=== PATIENT | male | born 1955 | race Caucasian/White ===

== ENCOUNTER → 2017-03-20 | Outpatient (CLI) | payer OTHER | LOC: CIMAGING 14:53 | PROVIDERS: ATTEND Family Medicine | DX: M25.511 Pain in right shoulder (principal); M25.512 Pain in left shoulder | CPT/HCPCS: 73030-PO ==

== ENCOUNTER 2017-03-24 11:05 | Inpatient (IN) | payer OTHER ==
[2017-03-24] MEDS ORDERED: LET GEL TOPICAL 1 EA SYR TP ONE ×2 (11:36→11:40)
--- NOTE | 2017-03-24 11:47 | CPEKG ---
Heart Rate: 102 RR Interval: 588 P-R Interval: 152 QRSD Interval: 92 QT Interval: 396 QTC Interval: 516 P [place]: 45 QRS [place]: 23 T Wave [place]: 21 EKG Severity - ABNORMAL ECG - EKG Impression: SINUS TACHYCARDIA EKG Impression: BORDERLINE INFERIOR Q WAVES EKG Impression: ABNRM R PROG, CONSIDER ASMI OR LEAD PLACEMENT EKG Impression: PROLONGED QT INTERVAL Electronically Signed By: Archana Rawls 24-Mar-2017 14:53:07
[2017-03-24] MEDS ORDERED: NS 500 ML IV ONE (11:58)
--- NOTE | 2017-03-24 12:02 | EDPHY ---
H & P Time Seen by Provider: 03/24/17 11:39 HPI/ROS: CHIEF COMPLAINT: Syncope, head injury HISTORY OF PRESENT ILLNESS: The patient is a 61-year-old male with a history of coronary artery disease who presents to the emergency department after having a syncopal episode. Patient got up this morning to go to the bathroom. He states he stood up too quickly and started walking to the bathroom. He became lightheaded and fell to the floor. He has a laceration on his head and face. He has a mild headache. No neck pain. Patient states his period of unconsciousness was brief. He had no preceding symptoms such as chest pain or shortness of breath. No nausea, vomiting or diaphoresis before after the incident. Patient states he had a similar incident 6 months ago. REVIEW OF SYSTEMS: My complete review of systems is negative except as mentioned in the HPI. Past Medical/Surgical History: Includes coronary artery disease, Meckel's diverticulum Past surgical history: Includes stent placement, abdominal surgery for Meckel' s diverticulum Social history: Patient does not smoke Smoking Status: Former smoker Physical Exam: 36.7, 93/73, 106, 16, 98% on room air GENERAL: Well-appearing, in no acute distress, alert. HEENT: Eyes normal to inspection, normal pharynx, no signs of dehydration. Patient has a irregular 3 cm laceration on the right top aspect of his head (#1) . The skin is slightly macerated. No deformity of the cranium. The patient has a surrounding hematoma. Patient also has a 3 cm vertically linear laceration on his left cheek (#2). This does not involve his eye. No bony tenderness palpation NECK: No thyromegaly, no lymphadenopathy, supple. Nexus negative. No C-spine tenderness. RESPIRATORY: Clear to auscultation bilaterally, no rales, rhonchi or wheezing. CVS: Regular rate and rhythm, no rubs, murmurs, or gallops. ABDOMEN: Soft, nontender, nondistended, no organomegaly. BACK: Normal to inspection, no CVA tenderness. No spinal tenderness Pelvis: Stable no tenderness palpation. Full range of motion. SKIN: Normal color, no rash, warm, dry. No pallor. EXTREMITIES: No pedal edema, no calf tenderness, no Homans sign or cords, no joint swelling. NEURO/PSYCH: Higher functions: Alert and Oriented x3. Normal speech and cognition. Normal mood and affect. Cranial nerves: Normal as tested. Cerebellar: Normal as tested. Good finger to nose, good [id number], normal gait. Peripheral exam: Normal motor exam. Normal sensation. Normal reflexes. Constitutional: Initial Vital Signs Temperature (C) 36.7 C 03/24/17 11:18 Heart Rate 106 H 03/24/17 11:18 Respiratory Rate 16 03/24/17 11:18 Blood Pressure 93/73 L 03/24/17 11:18 O2 Sat (%) 98 03/24/17 11:18 O2 Delivery Mode Room Air Allergies/Adverse Reactions: No Known Allergies Allergy (Verified 03/24/17 11:29) Home Medications: Medication Instructions Recorded Metoprolol Succinate 09/30/16 Aspirin 03/24/17 Lisinopril 03/24/17 Medical Decision Making Procedures: Procedure: Laceration repair. #1. Verbal consent was obtained from the patient. The 3 cm laceration on the top of his head was anesthetized in the usual fashion. The wound was irrigated, draped and explored to its base with a gloved finger. There were no deep structures involved. No galea involvement. The front half of the wound was laceration. The last half of the wound was a divot out of the skin. This made the back half of the laceration not amenable to approximation of repair. The wound was repaired with shan. The wound repair was simple. The procedure was performed by myself. Procedure: Laceration repair. #2. Verbal consent was obtained from the patient. The 3 cm laceration on the left face was anesthetized in the usual fashion. The wound was irrigated, draped and explored to its base with a gloved finger. There were no deep structures involved. The wound was repaired with 6 0 nylon. The wound repair was simple. The procedure was performed by myself. ED Course/Re-evaluation: In the emergency department I discussed possible etiologies with the patient. I answered all his questions. EKG, head CT, laboratory studies were ordered. Patient was placed on the lamp assembler. He is given normal saline 500 mL IV. EKG shows sinus tachycardia 102, normal axis, prolonged QT (516). Small Q- waves II, III, aVF. There are no ST or T-wave abnormalities. I reviewed the patient's laboratory studies. The patient's chemistry panel is abnormal. He has a low chloride of 91. His CO2 is low at 14. His anion gap is elevated at 29. Creatinine elevated at 1.9. Patient had his wounds repaired. Please refer to the note. On recheck he had no focal neurologic deficits. No new complaints. The patient's heart was 107. Head CT: Please refer the dictated report I discussed all results with the patient. I answered his questions. Patient was given normal saline 500 mL IV for hydration I paged the hospitalist service. The patient will be admitted for further observation and care. This is due the patient's syncopal episode, abnormal EKG and mild tachycardia. Differential Diagnosis: My differential includes but not limited to dysrhythmia, ACS, acute MS, vasovagal episode, subarachnoid hemorrhage, subdural hematoma, epidural hematoma , laceration, skull fracture - Data Points Laboratory Results: Laboratory Results 03/24/17 12:02 03/24/17 12:02 03/24/17 03/24/17 12: 12:02 WBC 11.60 10^3/uL H 10^3/uL (3.80-9.50) RBC 4.86 10^6/uL 10^6/uL (4.40-6.38) Hgb 16.9 g/dL g/dL (13.7-17.5) Hct 46.2 % % (40.0-51.0) MCV 95.1 fL fL (81.5-99.8) MCH 34.8 pg H pg (27.9-34.1) MCHC 36.6 g/dL g/dL (32.4-36.7) RDW 11.9 % % (11.5-15.2) Plt Count 241 10^3/uL 10^3/uL (150-400) MPV 8.1 fL L fL (8.7-11.7) Neut % (Auto) 77.8 % H % (39.3-74.2) Lymph % (Auto) 12.9 % L % (15.0-45.0) Wolfe % (Auto) 8.0 % % (4.5-13.0) Eos % (Auto) 0.2 % L % (0.6-7.6) Baso % (Auto) 0.8 % % (0.3-1.7) Nucleat RBC Rel Count 0.2 % % (0.0-0.2) Absolute Neuts (auto) 9.02 10^3/uL H 10^3/uL (1.70-6.50) Absolute Lymphs (auto) 1.50 10^3/uL 10^3/uL (1.00-3.00) Absolute Monos (auto) 0.93 10^3/uL H 10^3/uL (0.30-0.80) Absolute Eos (auto) 0.02 10^3/uL L 10^3/uL (0.03-0.40) Absolute Basos (auto) 0.09 10^3/uL 10^3/uL (0.02-0.10) Absolute Nucleated RBC 0.02 10^3/uL H 10^3/uL (0-0.01) Immature Gran % 0.3 % % (0.0-1.1) Immature Gran # 0.04 10^3/uL 10^3/uL (0.00-0.10) Sodium 134 mEq/L mEq/L (134-144) Potassium 4.5 mEq/L mEq/L (3.5-5.2) Chloride 91 mEq/L L mEq/L (97-110) Carbon Dioxide 14 mEq/l L mEq/l (22-31) Anion Gap 29 mEq/L H mEq/L (8-16) BUN 19 mg/dL mg/dL (7-23) Creatinine 1.9 mg/dL H mg/dL (0.7-1.3) Estimated GFR 36 Glucose 108 mg/dL H mg/dL (70-100) Calcium 9.2 mg/dL mg/dL (8.5-10.4) Troponin I Pending Medications Given: Discontinued Medications Sodium Chloride (Ns) 500 mls @ 0 mls/hr IV ONCE ONE; Wide Open PRN Reason: Protocol Stop: 03/24/17 11:59 Last Admin: 03/24/17 12:15 Dose: 500 mls Tetracaine/Epinephrine/Lidocaine (Let Gel Topical) 1 ea TP EDNOW ONE Stop: 03/24/17 11:41 Last Admin: 03/24/17 11:41 Dose: 1 ea Departure - Departure Disposition: [facility] Acute Clinical Impression: Laceration, Syncope and collapse, Prolonged QT interval Condition: Good Referrals: Rosi Avelar MD [Primary Care Provider] - As per Instructions
[2017-03-24 12:09] LABS: % IMMATURE GRANULYOCYTES 0.3 % (0.0-1.1); ABSOLUTE IMMATURE GRANULOCYTES 0.04 10^3/uL (0.00-0.10); ABSOLUTE NRBC COUNT 0.02 10^3/uL (0-0.01); ADD DIFF? NO; ADD MORPH? NO; ADD SCAN? NO; ATYPICAL LYMPHOCYTE FLAG 0 (0-99); FRAGMENT RBC FLAG 0 (0-99); HEMATOCRIT 46.2 % (40.0-51.0); HEMOGLOBIN 16.9 g/dL (13.7-17.5); LEFT SHIFT FLG 0 (0-99); LIPEMIA HEMOLYSIS FLAG 90 (0-99); MEAN CELL HEMOGLOBIN 34.8 pg (27.9-34.1); MEAN CELL HEMOGLOBIN CONCENTR. 36.6 g/dL (32.4-36.7); MEAN CELL VOLUME 95.1 fL (81.5-99.8); MEAN PLATELET VOLUME 8.1 fL (8.7-11.7); NRBC-AUTO% 0.2 % (0.0-0.2); PLATELET CLUMPS FLAG 0 (0-99); PLATELET COUNT 241 10^3/uL (150-400); RED BLOOD CELL COUNT 4.86 10^6/uL (4.40-6.38); RED CELL DISTRIBUTION WIDTH 11.9 % (11.5-15.2)
[2017-03-24 12:20] LABS: ANION GAP 29 mEq/L (8-16); CALCIUM 9.2 mg/dL (8.5-10.4); CARBON DIOXIDE 14 mEq/l (22-31); CHLORIDE 91 mEq/L (97-110); CREATININE 1.9 mg/dL (0.7-1.3); GLOMERULAR FILTRATION RATE 36; GLUCOSE 108 mg/dL (70-100); POTASSIUM 4.5 mEq/L (3.5-5.2); SODIUM 134 mEq/L (134-144)
[2017-03-24 12:30] LABS: TROPONIN I < 0.012 ng/mL (0.000-0.034)
[2017-03-24 13:34] LABS: INR 1.03 (0.83-1.16); PROTIME(PATIENT) 13.4 SEC (12.0-15.0)
[2017-03-24 13:41] LABS: ALANINE AMINOTRANSFERASE 65 IU/L (21-72); ALBUMIN 4.5 g/dL (3.5-5.0); ALKALINE PHOSPHATASE 89 IU/L (38-126); ASPARTATE AMINOTRANSFERASE 71 IU/L (17-59); BILIRUBIN,TOTAL 1.2 mg/dL (0.1-1.4); BILIRUBIN-CONJUGATED 0.5 mg/dL (0.0-0.5); BILIRUBIN-UNCONJUGATED 0.7 mg/dL (0.0-1.1); MAGNESIUM 2.2 mg/dL (1.6-2.3); SALICYLATE < 1.0 mg/dL (2.0-20.0); TOTAL PROTEIN 7.2 g/dL (6.3-8.2)
[2017-03-24] MEDS ORDERED: NS 2,200 ML IV ONE (15:01)
[2017-03-24] MEDS ORDERED: LORazepam 2 MG/ML INJ IVP PRN (15:13)
[2017-03-24] MEDS ORDERED: chlordiazePOXIDE 25 MG CAP PO PRN (15:13)
[2017-03-24] MEDS ORDERED: ACETAMINOPHEN 325 MG TAB PO PRN (15:17)
[2017-03-24] MEDS ORDERED: PROMETHAZINE HCL 25 MG/ML INJ IVP PRN (15:17)
[2017-03-24] MEDS ORDERED: ONDANSETRON 4 MG/2 ML VIAL IVP PRN (15:17)
--- NOTE | 2017-03-24 16:00 | GHP ---
[f rep st] HISTORY AND PHYSICAL DATE OF ADMISSION: 03/24/2017 CHIEF COMPLAINT: Syncope. HISTORY OF PRESENT ILLNESS: The patient is a 61-year-old male, who woke up this morning to go to the bathroom, jumped out of bed, and subsequently had a salma syncopal event, hitting his head and susta ining 2 scalp lacerations. He has passed out like this similarly in the past. He denies any chest p ain or shortness of breath. He denies any other symptoms, and states when he went to bed last evenin g he was in his usual state of health. He has had recent normal oral intake and denies any fever. O n further questioning, in social history, he does reveal alcohol use, admitting to 2 drinks per day, but did admit to increased alcohol use last night, which he states was only 4 drinks. He denies ever having alcohol withdrawal in the past. He then admitted to probable dehydration, which he states is due to difficulty keeping up with fluid intake. PAST MEDICAL HISTORY: 1. Coronary artery disease, status post stent [id number]. 2. Meckel diverticulum, status post resection. MEDICATIONS: Please see computer record for detailed list. ALLERGIES: No known drug allergies. SOCIAL HISTORY: No smoking. 2 alcoholic beverages per day. Drank 4 last night. He lives alone. H is niece is currently staying with him. He works as a computer hardware designer. REVIEW OF SYSTEMS: Complete review of systems obtained. Review of systems negative regarding consti tutional, HEENT, GI, pulmonary, cardiovascular, , hematology, skin, muscular, endocrine, psych, and for positives as under HPI. FAMILY HISTORY: Reviewed, noncontributory to presenting complaint. PHYSICAL EXAMINATION: GENERAL: Well-developed, well-nourished male, in no acute distress. He does appear mildly to moderately tremulous. VITAL SIGNS: Temp is 36.7, pulse 115, blood pressure 147/82, saturating 92% on room air. HEENT: Normal conjunctivae. Pupils react light. ENT: Normal ears an d nose. Hearing intact. Normal lips and teeth. Oropharynx moist. NECK: Trachea midline. No thyr omegaly. CHEST: Normal effort. LUNGS: Clear to auscultation bilaterally. CARDIOVASCULAR: Regula r rhythm. No murmur. No extremity edema. ABDOMEN: Soft, nontender. No hepatosplenomegaly. SKIN: Warm, dry, intact without rash. MUSCULOSKELETAL: No cyanosis or clubbing. Strength 5/5 upper and lower extremities. NEUROLOGIC: Cranial nerves intact. Normal sensation to light touch. PSYCHIATR IC: Alert and oriented x3. Normal affect. Normal judgment. Normal memory. LABORATORY DATA: White count 11.6, hematocrit 46.8, platelets 241. Sodium 134, potassium 4.5, chlor tika 91, bicarb 14, anion gap is 29, BUN 19. Creatinine 1.9, glucose 108. Lactate is 7.7. INR is 1.0 3. Troponins negative. IMAGING STUDIES: Chest x-ray is negative. EKG viewed by me. My personal interpretation is sinus ta chycardia, mild prolonged QT. Head CT shows right scalp hematoma and exaggerated brain atrophy for a ge. ASSESSMENT AND PLAN: 1. Syncope. I suspect this is due to dehydration, as he does have a very elevated lactate, which wo uld suggest intravascular volume depletion. We will follow orthostatics. We will check an echocardi ogram, TSH, and follow him on telemetry. 2. Anion gap acidosis. Anion gap is 29. This is due to his lactate of 7.7. I do not think he is s eptic, but I will check blood cultures times 2. There is no current source evident. This may all be due to severe dehydration. Will aggressively hydrate with intravenous fluids and follow serial lact ates. 3. Acute renal failure. As discussed above, the patient is likely dehydrated. Give an intravenous fluid bolus, and follow Chem-7. 4. Scalp laceration, status post repair. This was done in the emergency room. 5. Coronary artery disease, status post stent. I do not think he has any concerns for acute ischemi a at this time. 6. Long QT. This may be due to his acidosis, so I will recheck an EKG in the morning once this is i mproved. 7. Alcohol use, possible early alcohol withdrawal. He does present tremulous. His story is a little suspect regarding extreme laboratory abnormalities due to dehydration, and I do suspect he drank mor e heavily last night than he is initially admitting. Will place him on a Clinical [place] Withdraw al Assessment protocol with intravenous thiamine, and follow up for benzodiazepine needs. 8. Code status: Full. 9. Admission status: Will admit to observation and reassess tomorrow regarding ongoing hospitalizat ion need. 10. DVT prophylaxis. He is moderate risk. Will place him on subcu Lovenox. /[id number]/MODL
[2017-03-24] MEDS: THIAMINE HCL 500 MG in NS 100 ML IV SCH (16:01)
[2017-03-24 18:24] LABS: COLOR YELLOW; LEUKOCYTE ESTERASE,URINE NEGATIVE (NEGATIVE); NITRITE,URINE NEGATIVE (NEGATIVE)
[2017-03-24] MEDS: METOPROLOL TARTRATE 25 MG TAB PO SCH (20:35)
[2017-03-25 04:02] LABS: % IMMATURE GRANULYOCYTES 0.4 % (0.0-1.1); ABSOLUTE IMMATURE GRANULOCYTES 0.02 10^3/uL (0.00-0.10); ADD DIFF? NO; ADD MORPH? NO; ADD SCAN? NO; ATYPICAL LYMPHOCYTE FLAG 0 (0-99); FRAGMENT RBC FLAG 0 (0-99); HEMATOCRIT 38.1 % (40.0-51.0); HEMOGLOBIN 14.1 g/dL (13.7-17.5); LEFT SHIFT FLG 0 (0-99); LIPEMIA HEMOLYSIS FLAG 90 (0-99); MEAN CELL HEMOGLOBIN 35.4 pg (27.9-34.1); MEAN CELL VOLUME 95.7 fL (81.5-99.8); MEAN PLATELET VOLUME 8.5 fL (8.7-11.7); PLATELET CLUMPS FLAG 0 (0-99); PLATELET COUNT 107 10^3/uL (150-400); RED BLOOD CELL COUNT 3.98 10^6/uL (4.40-6.38); RED CELL DISTRIBUTION WIDTH 11.7 % (11.5-15.2)
[2017-03-25 04:21] LABS: ANION GAP 9 mEq/L (8-16); CALCIUM 8.7 mg/dL (8.5-10.4); CARBON DIOXIDE 23 mEq/l (22-31); CHLORIDE 104 mEq/L (97-110); GLOMERULAR FILTRATION RATE > 60; GLUCOSE 110 mg/dL (70-100); MAGNESIUM 2.1 mg/dL (1.6-2.3); POTASSIUM 4.1 mEq/L (3.5-5.2); SODIUM 136 mEq/L (134-144)
[2017-03-25 04:33] LABS: TROPONIN I < 0.012 ng/mL (0.000-0.034)
--- NOTE | 2017-03-25 08:39 | CPEKG ---
Heart Rate: 114 RR Interval: 526 P-R Interval: 156 QRSD Interval: 92 QT Interval: 356 QTC Interval: 491 P [place]: 36 QRS [place]: 21 T Wave [place]: -4 EKG Severity - BORDERLINE ECG - EKG Impression: SINUS TACHYCARDIA EKG Impression: BORDERLINE T ABNORMALITIES, INFERIOR LEADS EKG Impression: BORDERLINE PROLONGED QT INTERVAL EKG Impression: BORDERLINE INFERIOR T-WAVES ARE NOW PRESENT COMPARED WITH 03/24/2017 Electronically Signed By: Melony Brown 25-Mar-2017 08:45:41
[2017-03-25] MEDS: ASPIRIN EC 81 MG TAB PO SCH (08:45)
[2017-03-25] MEDS: METOPROLOL TARTRATE 25 MG TAB PO SCH ×2 (08:45→19:35)
[2017-03-25] MEDS: ENOXAPARIN 40 MG/0.4 ML SYR SC SCH (08:56)
[2017-03-25] MEDS: THIAMINE HCL 500 MG in NS 100 ML IV SCH (08:56)
[2017-03-25] MEDS ORDERED: hydrALAZINE 20 MG/ML VIAL IVP PRN (09:56)
[2017-03-25] MEDS: LISINOPRIL 10 MG TAB PO SCH ×2 (11:01→19:34)
[2017-03-25] MEDS: D5W NS 1,000 ML IV SCH ×2 (11:04→21:58)
--- NOTE | 2017-03-25 11:25 | ECHO ---
[email or web address] [address] [address] Main: [phone] Fax: Transthoracic Echocardiogram Name: SCOTT BURNS MR#: [id number] Study Date: 03/25/2017 Study Time: 08:13 AM Date of : 1955 Age: 61 year(s) Height: 172.7 cm (68 in.) Weight: 72.12 kg (159 lb.) BSA: 1.85 m2 Gender: Male Examination: Echo Indication: Cardiac: syncope, hx of stents Image Quality: Contrast: Requested by: Sharon Foster BP: 163 mmHg/105 mmHg Heart Rate: Rhythm: Indication: Cardiac: syncope, hx of stents Procedure Staff Heading And Priming Operator: Priscila Huddleston Physician: Requesting Provider: Measurements: Chambers Valvular Assessment AV/MV Valvular Assessment TV/PV Normal Normal Normal Name Value Range Name Value Range Name Value Range Ao Theresa (MM): 3.7 cm (2.2 cm-3.7 AV meanP mmHg ( - ) cm) MV E Vmax: 0.85 m/s ( - ) IVSd (2D): 0.8 cm (0.6 cm-1.1 MV A Vmax: 1.16 m/s ( - ) cm) MV E/A: 0.73 ( - ) LVDd (2D): 4.4 cm (4.2 cm-5.9 cm) LVDs (2D): 2.2 cm (2.1 cm-4 cm) LVPWd (2D): 0.8 cm (0.6 cm-1 cm) LVEF (2D): 81 (>=54 %) EF Range: 75-80 % Continued Measurements: Chambers Valvular Assessment AV/MV Name Value Name Value LADs: 3.2 cm MV E' Septal: 0.11 m/s LADs Lon.0 cm MV E/E' Septal: 7.40 LA Area: 15.9 cm2 MV E/E' Lateral: 7.00 Findings: Left Ventricle: Normal size left ventricle. Global hypercontractility of the left ventricle. The ejection fraction is estimated to be 75-80 %. Patient: SCOTT BURNS Study Date: 03/25/2017 Page 1 of 2 08:13 AM Right Ventricle: Normal size right ventricle. Left Atrium: The left atrium is normal in size. Right Atrium: The right atrium is normal in size. Mitral Valve: The mitral valve is normal in appearance. Mild mitral valve regurgitation is present. Aortic Valve: The aortic valve is tri-leaflet. Tricuspid Valve: The tricuspid valve appears normal. Pulmonic Valve: Pulmonary valve not well visualized. Pericardium: No pericardial effusion. (No Signature Object) Patient: SCOTT BURNS Study Date: 03/25/2017 Page 2 of 2 08:13 AM [id number]
[2017-03-25] MEDS ORDERED: METOPROLOL TARTRATE 25 MG TAB PO ONE (13:00)
--- NOTE | 2017-03-25 15:27 | HOSPPROG ---
Hospitalist Progress Note Assessment/Plan: * Lactic acidosis with elevated AG gap -improved -doubt sepsis - BC negative -suspect dehydration vs. Etoh * Sinus tachycardia - HR > 140 last night -CTA negative for PE -suspect ongoing dehydration vs. Etoh withdrawal * Heavy Etoh use -other than tachycardia - doesn't seem c/w withdrawal * ARF - resolved * Syncope - due to dehydration * Scalp laceration s/p suture * HTN - lisinopril, metoprolol * CAD/stent -ASA * Mild prolonged Qt Subjective: No complaints Objective: Vital Signs Temp Pulse Resp BP Pulse Ox 36.4 C 106 H 18 166/111 H 96 03/25/17 07:34 03/25/17 13:19 03/25/17 12:10 03/25/17 13:19 03/25/17 12:10 Laboratory Results 03/25/17 03:46 03/25/17 03:46 03/24/17 03/25/17 03/26/17 05:59 05:59 05:59 Intake Total 4350 Output Total 450 Balance 3900 PT 13.4 SEC (12.0-15.0) 03/24/17 12:02 INR 1.03 (0.83-1.16) 03/24/17 12:02 EKG viewed, my personal interpretation is - mild long Qtc 491, no ischemic st changes CTA chest - no PE - Physical Exam Constitutional: no apparent distress, appears nourished, not in pain Cardiovascular: regular rate and rhythym, no murmur, rub, or gallop Respiratory: no respiratory distress, no rales or rhonchi, clear to auscultation Gastrointestinal: normoactive bowel sounds, soft, non-tender abdomen, no palpable masses Skin: no rashes or abrasions, no fluctuance, no induration Neurologic: AAOx3, sensation intact bilaterally Psychiatric: interacting appropriately, not anxious, not encephalopathic, thought process linear ICD10 Worksheet Patient Problems: Problems Problem Status Onset Laceration Acute Prolonged QT interval Acute Syncope and collapse Acute
--- NOTE | 2017-03-25 16:33 | PDMN ---
Medical Necessity Medical necessity: Patient meets INPT criteria per physician note and [facility] [place] M-197 Hypertension (initially hospitalized w/salma syncope/passed out and sustaining scalp lacs x 2; anion gap acidosis w/lactate 7.7 now resolved, ARF/Creat 1.9 now 1.0); hx heavy ETOH usage/possible early withdrawal; ongoing tachycardia today despite IV hydration; IV Apresolline required for B/P to 166/111; anticipated LOS > 2 midnights for likely dehydration vs ETOH withdrawal; ongoing IV hydration and monitoring/poss additional Apresoline.)
--- NOTE | 2017-03-25 16:36 | ASMTCMCOM ---
CM Note CM Note Notes: 03/25/2017 Case Management Note Met w/pt. 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 He has a daughter in [place] Nadine Mendoza [phone]. His niece Sally Samano [phone] from [place] is living with him for the next few weeks. There were no d/c needs identified. Pt is going to explore counseling benefitsthrough his employee benefits and his private insurance for support to achieve sobriety. Pt declined AA or other resources and stated that his drinking is a habit. Pt stated he does feel he drinks too much but was feeling that having his niece live with him would disrupt his routine and force a change. Encouraged pt to find as much support as possible in his efforts to decrease his alcohol consumption. Pt stated he started drinking after his divorce 7 years ago. Case Management d/c poc: Home independent when medically stable. Case management available if needs change. Date Signed: 03/25/2017 04:36 PM Electronically Signed By:Lisa López RN
[2017-03-26 05:00] LABS: % IMMATURE GRANULYOCYTES 0.4 % (0.0-1.1); ABSOLUTE IMMATURE GRANULOCYTES 0.01 10^3/uL (0.00-0.10); ADD DIFF? NO; ADD MORPH? NO; ADD SCAN? NO; ATYPICAL LYMPHOCYTE FLAG 0 (0-99); FRAGMENT RBC FLAG 0 (0-99); HEMATOCRIT 35.9 % (40.0-51.0); HEMOGLOBIN 13.2 g/dL (13.7-17.5); LEFT SHIFT FLG 0 (0-99); LIPEMIA HEMOLYSIS FLAG 90 (0-99); MEAN CELL HEMOGLOBIN 35.8 pg (27.9-34.1); MEAN CELL HEMOGLOBIN CONCENTR. 36.8 g/dL (32.4-36.7); MEAN CELL VOLUME 97.3 fL (81.5-99.8); PLATELET CLUMPS FLAG 0 (0-99); PLATELET COUNT 95 10^3/uL (150-400); RED BLOOD CELL COUNT 3.69 10^6/uL (4.40-6.38); RED CELL DISTRIBUTION WIDTH 11.9 % (11.5-15.2)
[2017-03-26 05:22] LABS: ANION GAP 12 mEq/L (8-16); CARBON DIOXIDE 22 mEq/l (22-31); CHLORIDE 104 mEq/L (97-110); CHOLESTEROL 124 mg/dL (140-220); CHOLESTEROL/HDL RATIO 2.21 RATIO (1.00-4.97); CREATININE 0.9 mg/dL (0.7-1.3); GLOMERULAR FILTRATION RATE > 60; GLUCOSE 100 mg/dL (70-100); HIGH DENSITY LIPOPROTEIN 56 mg/dL (40-65); LOW DENSITY LIPOPROTEIN 56 mg/dL (80-100); MAGNESIUM 1.8 mg/dL (1.6-2.3); NON-HIGH DENSITY LIPOPROTEIN 68 mg/dL (90-129); POTASSIUM 3.7 mEq/L (3.5-5.2); SODIUM 138 mEq/L (134-144); TRIGLYCERIDE 62 mg/dL (40-150); VERY LOW DENSITY LIPOPROTEINS 12 mg/dL (8-25)
[2017-03-26 06:11] LABS: CALCIUM 8.7 mg/dL (8.5-10.4)
[2017-03-26] MEDS: THIAMINE HCL 500 MG in NS 100 ML IV SCH (08:06)
[2017-03-26] MEDS: LISINOPRIL 10 MG TAB PO SCH (08:06)
[2017-03-26] MEDS: ENOXAPARIN 40 MG/0.4 ML SYR SC SCH (08:06)
[2017-03-26] MEDS: ASPIRIN EC 81 MG TAB PO SCH (08:06)
[2017-03-26] MEDS: METOPROLOL TARTRATE 25 MG TAB PO SCH (08:07)
[2017-03-26 08:14] VITALS: BP 169/105; PULSE 88; RESP 16; TEMP 98; O2SAT 93
--- NOTE | 2017-03-26 12:42 | ASDISCHSUM ---
Discharge Information Plan Status:Home with No Needs Medically Cleared to Leave:03/25/2017 Discharge Date:03/26/2017 11:35 AM CM D/C Disposition:Home, Routine, Self-Care ADT D/C Disposition:Home, Routine, Self-Care Projected Discharge Date:03/26/2017 11:35 AM Transportation at D/C:Family Discharge Delay Reason: Follow-Up Date:03/26/2017 11:35 AM Discharge Slot: Final Diagnosis: Placement Information Patient Contact Information Contact Name:VIC Relationship:Sister Address: Home Phone: City: [facility] Phone: [facility] MD Code: Email: Financial Information Financial Class:[facility] Primary Plan Desc:[employer]MO OPEN ACC [facility] Primary Plan Number:[id number] Secondary Plan Desc: Secondary Plan Number: Assessment Information [facility] CM Progress Note CM Note CM Note Notes: 03/25/2017 Case Management Note Met w/pt. 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 He has a daughter in [place] Nadine Mendoza [phone]. His niece Sally Samano [phone] from [place] is living with him for the next few weeks. There were no d/c needs identified. Pt is going to explore counseling benefitsthrough his employee benefits and his private insurance for support to achieve sobriety. Pt declined AA or other resources and stated that his drinking is a habit. Pt stated he does feel he drinks too much but was feeling that having his niece live with him would disrupt his routine and force a change. Encouraged pt to find as much support as possible in his efforts to decrease his alcohol consumption. Pt stated he started drinking after his divorce 7 years ago. Case Management d/c poc: Home independent when medically stable. Case management available if needs change. Date Signed: 03/25/2017 04:36 PM Electronically Signed By:Lisa López RN Intervention Information
--- NOTE | 2017-03-26 23:59 | GDS ---
[f rep st] DISCHARGE SUMMARY DISCHARGE DIAGNOSES: 1. Lactic acidosis with elevated anion gap. 2. Severe dehydration. 3. Heavy alcohol use. 4. Acute renal failure. 5. Syncope due to dehydration. 6. Scalp laceration, status post suturing. 7. Hypertension. 8. Coronary artery disease, status post stent. 9. Mild prolonged QT interval. HISTORY: The patient is a 61-year-old male who presented with an elevated anion gap and a lactate of 7.7 with a syncopal event. He was very tachycardic. He was profoundly dehydrated. Sepsis was rule d out and blood cultures were negative. He subsequently revealed quite heavy alcohol use, which I th ink is contributing to his presentation. He had persistent sinus tachycardia that eventually resolve d with IV fluid. CT angiogram of chest was negative for PE. He had minimal benzodiazepine requireme nt throughout this hospitalization, had mild withdrawal if any. He was counseled regarding his alcoh ol use. Acute renal failure resolved. He had no further lightheadedness and with his poor profusion as evidenced by his elevated lactate, I do not think we need to do any further workup regarding card iogenic syncope. He had a pretty good fall and had 2 scalp lacerations that were sutured in the [facility] room. Troponins were negative. Blood pressures were elevated throughout this hospitalization. However, I think that is probably due to his alcohol withdrawal. I did not change medications. Re commended outpatient close followup. DISCHARGE MEDICATIONS: Please see computer record for full detailed list. There are no new medicati ons given at the time of hospital discharge. ADDITIONAL DISCHARGE INSTRUCTIONS: 1. Repeat laboratory studies including CBC and Chem-7. Please note, the patient developed a pancyto penia throughout this hospitalization, which may also be alcohol related. Plan to recheck blood pres sure this upcoming Saturday. 2. Suture removal instructions per Emergency Room. 3. Outpatient alcohol counseling recommended and discussed with patient at length. 4. Greater than 30 minutes' time was spent arranging this discharge. Patient seen and examined by me on the day of discharge. /[id number]/MODL
== END 2017-03-26 11:35 | disposition home or self-care (01) | DRG 641 ==
LOC: CED 11:05 → CEDHOLD 12:39 → F2W 14:35 → OBSVTOIN 03-25 12:47
PROVIDERS: ADMIT Internal Medicine; ATTEND Internal Medicine
DX: E86.0 Dehydration (principal); E87.2 Acidosis; N17.9 Acute kidney failure, unspecified; S01.01XA Laceration without foreign body of scalp, initial encounter; S01.419A Laceration without foreign body of unspecified cheek and temporomandibular area, initial encounter; W18.30XA Fall on same level, unspecified, initial encounter; Y92.003 Bedroom of unspecified non-institutional (private) residence as the place of occurrence of the external cause; F10.239 Alcohol dependence with withdrawal, unspecified; I45.81 Long QT syndrome; I25.10 Atherosclerotic heart disease of native coronary artery without angina pectoris; I10 Essential (primary) hypertension; Z95.5 Presence of coronary angioplasty implant and graft; Z87.891 Personal history of nicotine dependence
CPT/HCPCS: 70450-PO; 71010-PO; 80048-PO; 80076-PO; 83605-PO; 83735-PO; 84484-PO; 85025-PO; 85610-PO; G0378; G0480; J0360; J1650; J2060; J3411

== ENCOUNTER 2018-05-31 12:45 | Emergency (ER) | payer OTHER ==
--- NOTE | 2018-05-31 12:56 | EDPHY ---
H & P Stated Complaint: N/V/D THIS WEEK STOPPED TODAY BUT STILL HAVING PAIN EPIGASTRIC /ST WHEN EA Time Seen by Provider: 05/31/18 12:55 - Personal History Current Tetanus Diphtheria and Acellular Pertussis (TDAP): Yes Tetanus Vaccine Date: WITHIN 10 YRS - Medical/Surgical History Hx Asthma: No Hx Chronic Respiratory Disease: No Hx Diabetes: No Hx Cardiac Disease: Yes Hx Renal Disease: No Hx Cirrhosis: No Hx Alcoholism: No Hx HIV/AIDS: No Hx Splenectomy or Spleen Trauma: No Other PMH: CARDIAC STENTS, ABD SURG FOR MECKELS , floridalma bicept tendonitis - Social History Smoking Status: Former smoker Constitutional: Initial Vital Signs Temperature (C) 36.5 C 05/31/18 12:48 Heart Rate 107 H 05/31/18 12:48 Respiratory Rate 18 05/31/18 12:48 Blood Pressure 126/99 H 05/31/18 12:48 O2 Sat (%) 94 05/31/18 12:48 O2 Delivery Mode Room Air Allergies/Adverse Reactions: No Known Allergies Allergy (Verified 05/31/18 12:48) Home Medications: Medication Instructions Recorded Aspirin EC [Aspirin EC 81 mg (*)] 81 mg PO DAILY 03/24/17 Cholecalciferol Vit D3 [Vitamin D3 1,000 units PO DAILY 03/24/17 (*)] Lisinopril [Zestril 10 mg (*)] 10 mg PO BID 03/24/17 Metoprolol Tartrate [Lopressor 25 25 mg PO BID 03/24/17 mg (*)] Multivitamins [Multivitamin (*)] 1 each PO DAILY 03/24/17 Sucralfate [Carafate 1gm/10ml Oral 1 gm PO QID #280 ml 05/31/18 Liquid (*)] Medical Decision Making ED Course/Re-evaluation: CHIEF COMPLAINT: Odynophagia, recent vomiting HISTORY OF PRESENT ILLNESS: The patient is a 62 y/o male with a history of CAD post stenting complaining of painful swallowing following a 24-hour period of profuse vomiting on Saturday, 4 days ago. His vomiting was followed by diarrhea, but both symptoms seem to have resolved today. He says, "I think I damaged something with all that vomiting" because he is unable to swallow water without significant pain. He describes the pain his esophagus as a "harsh, bile, acidic , like hot sauce" sensation. Pain has slowly improved since onset. He denies any obvious blood in his emesis or stool since symptom onset. He has occasionally felt lightheaded. He measured his BP on a home monitor yesterday and it was 85/59, so he decided to come into the ED for evaluation. No fever, dyspnea, cough, abdominal pain, recent trauma. REVIEW OF SYSTEMS: A comprehensive 10 system review of systems is otherwise negative aside from elements mentioned in the history of present illness and medical decision making. PHYSICAL EXAM: HR, BP, O2 Sat, RR. Temp noted General Appearance: Alert, well hydrated, appropriate, and non-toxic appearing. Head: Atraumatic without scalp tenderness or obvious injury Eyes: Pupils equal, round, reactive to light and accommodation, EOMI, no trauma , no injection. Nose: Atraumatic, no rhinorrhea, clear. Throat: There is no erythema or exudates, no lesions, normal tonsils, mucus membranes moist. Neck: Supple, nontender, no lymphadenopathy. Respiratory: No retractions, no distress, no wheezes, and no accessory muscle use. Lungs are clear to auscultation bilaterally. Cardiovascular: Regular rate and rhythm, no murmurs, rubs, or gallops. Good capillary refill all extremities. Gastrointestinal: Abdomen is soft, nontender, non-distended, no masses, no rebound, no guarding, no peritoneal signs. Musculoskeletal: Normal active ROM of all extremities, atraumatic. Neurological: Alert, appropriate, and interactive. The patient has non-focal cranial nerves, motor, sensory, and cerebellar exam. Skin: No rashes, good turgor, no nodules on palpation. Past medical history: CAD, admission 03/24/17 for lactic acidosis with elevated anion gap Past surgical history: Cardiac stent, Meckel diverticulum status post resection Family history: Noncontributory Social history: Lives in [place], employed, . Reviewed prior medical records including admission 03/24/17 for syncope. DIFFERENTIAL DIAGNOSIS: The differential diagnosis for the patient's symptoms included but was not limited to Renetta Moyer tear, esophageal stricture, esophageal foreign body, Boerhaave's esophagus, gastroenteritis, gastritis, and medication side effect. MEDICAL DECISION MAKING: This is a well-appearing 62 y/o male with a history of CAD who presents with improving burning esophageal pain after a 24-hour period of profuse vomiting 3- 4 days ago. His exam is unremarkable. Doubt Boerhaave's esophagus due to the vomiting event occurring 3-4 days ago how well he appears today. He is not hypotensive or hypoxemic. Renetta-Moyer tear more likely cause for symptoms. Plan for IV, ISTAT, IV fluids, 4mg IV Zofran, PO GI cocktail. Creatinine 3.0. Additional liter of IV fluid ordered. Feeling improved after GI cocktail. Plan for PO trial then recheck of ISTAT. 1420: Patient is feeling improved and tolerating PO fluids. Will recheck ISTAT. 1500: Repeat ISTAT has improved to 2.6. Patient is feeling significantly improved. Plan for discharge home with PCP follow up on Saturday for recheck of his creatinine and GI follow up this week. Carafate prescribed for symptoms. Return precautions discussed. He is comfortable with this plan. - Data Points Laboratory Results: 05/31/18 05/31/18 14:48 13:16 POC Hgb 14.3 gm/dL gm/dL 16.3 gm/dL gm/dL (13.7-17.5) (13.7-17.5) POC Hct 42 % % 48 % % (40-51) (40-51) POC Sodium 134 mEq/L L mEq/L 130 mEq/L L mEq/L (135-145) (135-145) POC Potassium 3.2 mEq/L L mEq/L 3.5 mEq/L mEq/L (3.3-5.0) (3.3-5.0) POC Chloride 94 mEq/L L mEq/L 92 mEq/L L mEq/L (97-110) (97-110) POC Total CO2 24 mEq/L mEq/L 23 mEq/L mEq/L (22-31) (22-31) POC BUN 47 mg/dL H mg/dL 49 mg/dL H mg/dL (7-23) (7-23) POC Creatinine 2.6 mg/dL H mg/dL 3.0 mg/dL H mg/dL (0.7-1.3) (0.7-1.3) POC Glucose 98 mg/dL mg/dL 133 mg/dL H mg/dL (70-100) (70-100) Medications Given: Discontinued Medications Al Hydroxide/Mg Hydroxide (Maalox Susp) 30 ml PO ONCE ONE Stop: 05/31/18 13:04 Last Admin: 05/31/18 13:25 Dose: 30 ml Hyoscyamine Sulfate (Levsin, Hyomax-Sl) 0.25 mg PO ONCE ONE Stop: 05/31/18 13:04 Last Admin: 05/31/18 13:25 Dose: 0.25 mg Sodium Chloride (Ns) 1,000 mls @ 0 mls/hr IV EDNOW ONE; Wide Open PRN Reason: Protocol Stop: 05/31/18 13:04 Last Admin: 05/31/18 13:25 Dose: 1,000 mls Sodium Chloride (Ns) 1,000 mls @ 0 mls/hr IV EDNOW ONE; Wide Open PRN Reason: Protocol Stop: 05/31/18 13:04 Last Admin: 05/31/18 13:25 Dose: 1,000 mls Lidocaine (Lidocaine 2% Viscous) 15 ml PO ONCE ONE Stop: 05/31/18 13:04 Last Admin: 05/31/18 13:25 Dose: 15 ml Ondansetron HCl (Zofran) 4 mg IVP EDNOW ONE Stop: 05/31/18 13:04 Last Admin: 05/31/18 13:26 Dose: 4 mg Point of Care Test Results: Chemistry 05/31/18 05/31/18 14:48 13:16 POC Sodium 134 mEq/L L mEq/L 130 mEq/L L mEq/L (135-145) (135-145) POC Potassium 3.2 mEq/L L mEq/L 3.5 mEq/L mEq/L (3.3-5.0) (3.3-5.0) POC Chloride 94 mEq/L L mEq/L 92 mEq/L L mEq/L (97-110) (97-110) POC Total CO2 24 mEq/L mEq/L 23 mEq/L mEq/L (22-31) (22-31) POC BUN 47 mg/dL H mg/dL 49 mg/dL H mg/dL (7-23) (7-23) POC Creatinine 2.6 mg/dL H mg/dL 3.0 mg/dL H mg/dL (0.7-1.3) (0.7-1.3) POC Glucose 98 mg/dL mg/dL 133 mg/dL H mg/dL (70-100) (70-100) ISTAT H&H 05/31/18 05/31/18 14:48 13:16 POC Hgb 14.3 gm/dL gm/dL 16.3 gm/dL gm/dL (13.7-17.5) (13.7-17.5) POC Hct 42 % % 48 % % (40-51) (40-51) Departure - Departure Disposition: Home, Routine, Self-Care Clinical Impression: Odynophagia, possible Renetta Moyer tear, Renal insufficiency Condition: Good Instructions: Sucralfate (By mouth), Renetta-Moyer Syndrome (ED) Additional Instructions: 1. Use Carafate as prescribed for symptoms over the next week. 2. Follow up with GI in the next 2-3 days for reassessment without fail. 3. Follow up with your primary care provider on Saturday to recheck your creatinine level. It was elevated here at 3.0 and improved to 2.6 after IV fluids. Continue to drink fluids throughout the day. 4. Return to the ED for severe pain, persistent vomiting, blood in your vomit or stool, difficulty breathing, inability to swallow, or any other worsening of condition Referrals: Yassine Rojas MD, FACG [Medical Doctor] - As per Instructions Prescriptions: Sucralfate [Carafate 1gm/10ml Oral Liquid (*)] 1 gm PO QID #280 ml Report Scribed for: Hemanth Medellin Report Scribed by: Mar Howell Date of Report: 05/31/18 Time of Report: 13:26
[2018-05-31] MEDS ORDERED: NS 1,000 ML IV ONE ×2 (13:03)
[2018-05-31] MEDS ORDERED: ONDANSETRON 4 MG/2 ML VIAL IVP ONE (13:03)
[2018-05-31] MEDS ORDERED: MAG HYDROX/AL HYDROX/SIMETH 30 ML UDCUP PO ONE (13:03)
[2018-05-31] MEDS ORDERED: LIDOCAINE 2% VISCOUS 15 ML UDCUP PO ONE (13:03)
[2018-05-31] MEDS ORDERED: HYOSCYAMINE SULFATE 0.125 MG TAB PO ONE (13:03)
[2018-05-31 15:25] VITALS: BP 104/68
== END 2018-05-31 15:25 | disposition home or self-care (01) ==
DX: R13.10 Dysphagia, unspecified (principal); N28.9 Disorder of kidney and ureter, unspecified; I25.10 Atherosclerotic heart disease of native coronary artery without angina pectoris; Z95.5 Presence of coronary angioplasty implant and graft
CPT/HCPCS: 82435-PO; 82565-PO; 82947-PO; 84132-PO; 84295-PO; 84520-PO; 85014-ER; 96374; J2405